=== PATIENT | male | born 1970 | race Two or more races ===

== ENCOUNTER 2024-11-11 14:38 | Emergency (ER) | payer OTHER, SELFPAY ==
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
[2024-11-11 14:44] VITALS: BP 153/95; PULSE 106; O2SAT 97
[2024-11-11 15:37] VITALS: BP 131/90; PULSE 90; RESP 16; TEMP 36.1; O2SAT 96; BMI 24.5
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
[2024-11-11 17:55] VITALS: BP 135/94; PULSE 83; RESP 15; TEMP 36.5; O2SAT 97
[2024-11-11] MEDS: dexAMETHasone 2 MG TABLET 10 MG PO (18:24)
[2024-11-11] MEDS: Ketorolac Tromethamine 15 MG/ML VIAL IM (18:27)
[2024-11-11 18:28] VITALS: BP 135/94; PULSE 83; RESP 15; TEMP 36.5; O2SAT 97
--- OUTSIDE RECORDS SUMMARY | 2024-11-11 18:55 | XMS_ITS | Encounter Summary ---
Author Organization [facility] Address [address] [place] [address] Care Team Providers Care Evaporator Operator Molasses Name Role Phone Physician, No Pcp Primary Care Provider Unavaila ble Encounter Details Date Type Department Care Team (Late st Contact Info) Description 09/11/2024 Lab Requisition [facility] - Main Lab [address] [place] [phone] Alex Jasmine PA [address] [place] [phone] Calculus of kidney Social History Tobacco Use Types Packs/Day Years Used Date Smoking Tobacco: Never Assessed Sex and Gender Information Value Date Recorded Sex Assigned at Male 03/28/2024 11:08 AM EST Legal Sex Male 3:12 PM EST Gender Identity Male 03/28/2024 11:08 AM EST Sexual Orientation Straight 03/28/2024 11 :08 AM EST documented as of this encounter Plan of Treatment Not on file documented as of this encounter Procedures Procedure Name Priority Date/Time Associated Diagnosis Comments PARATHYROID HORMONE INTACT Routine 09/11/2024 10:08 AM EDT [facility] kidney documented in this encounter Results * Parathyroid hormone intact (09/11/2024 10:08 AM EDT) PTH 52.3 18.5 - 88.0 pcg/mL LAB CHEMISTRY METHOD 09/11/2024 12:00 PM EDT [facility] ([facility] [place] Blood Venous blood specimen / Unknown 09/11/2024 10:08 AM EDT 09/11/2024 11:20 AM EDT Alex PEREZ LAB BLOOD ORDERABLES Final Result [facility] ([facility] [place] [address] [place] [address], [place] [phone] documented in this encounter Visit Diagnoses Diagnosis Calculus of kidney documented in this encounter Care Teams Evaporator Operator Molasses Relationship Specialty Start Date End Date Physician, No Pcp PCP - General 03/28/24 documented as of this encounter
== END 2024-11-11 18:29 | disposition home or self-care (01) ==
PROVIDERS: Emergency Provider Emergency Medicine; PCP Nurse Practitioner Family
DX: S80.01XA Contusion of right knee, initial encounter (principal); S80.211A Abrasion, right knee, initial encounter; S80.212A Abrasion, left knee, initial encounter; M54.50 Low back pain, unspecified; M54.6 Pain in thoracic spine; V43.52XA Car driver injured in collision with other type car in traffic accident, initial encounter; Y93.9 Activity, unspecified; Y92.410 Unspecified street and highway as the place of occurrence of the external cause; Y99.8 Other external cause status
CPT/HCPCS: 72072; 72100; 96372; 99283; 99284; J1885; J8540

== ENCOUNTER → 2024-11-11 15:40 | Outpatient (BNV) | payer OTHER, SELFPAY | PROVIDERS: Visit Provider Radiology Diagnostic Radiology | DX: M51.370 Other intervertebral disc degeneration, lumbosacral region with discogenic back pain only (principal); M54.14 Radiculopathy, thoracic region | CPT/HCPCS: 72072; 72100 ==